=== PATIENT | female | born 2000 ===

== ENCOUNTER 2022-02-09 12:09 | Outpatient (CLI) | payer OTHER, SELFPAY | END 2022-02-09 12:10 | disposition home or self-care (01) | LOC: ANHLAB 12:11 | PROVIDERS: PCP Family Medicine; Visit Provider Obstetrics & Gynecology | DX: Z36.89 Encounter for other specified antenatal screening (principal); Z3A.00 Weeks of gestation of pregnancy not specified | CPT/HCPCS: 36415; 85461 ==

== ENCOUNTER 2023-10-01 11:03 | Emergency (ER) | payer OTHER, SELFPAY ==
--- NOTE | 2023-10-01 11:04 | ED.GENADULT ---
HPI - General Adult General Chief complaint: Skin/Abscess/Foreign Body Stated complaint: Allergic Reaction, Itchy Throat Time Seen by Provider: 10/01/23 11:04 Source: patient Mode of arrival: ambulatory Limitations: no limitations History of Present Illness HPI narrative: 23-year-old female patient, who expressed no of allergic reaction. patient states she had her wisdom T taken out a couple of days ago and last night was experiencing more pain and so took the stronger medication of Tylenol with codeine. Patient states she woke up this morning with IA a blotchy rash to the face and neck that is itchy. Patient states her throat feels a little dry and irritated but denies any shortness of breath or coughing. Denies any feelings like her throat is closing up. Denies any fevers body aches or chills. Patient states she did take some Benadryl prior to arrival today Related Data Home Medications Medication Instructions Recorded Confirmed chlorhexidine gluconate 0.12 % 1 applic PO BID 10/01/23 10/01/23 mouthwash (Periogard) Allergies Allergy/AdvReac Type Severity Reaction Status Date / Time No Known Allergies Allergy Verified 10/01/23 11:08 Review of Systems Review of Systems: CONSTITUTIONAL: Denies fever, chills, or sweats. EYES: Denies visual changes, redness, or discharge. ENT: Denies rhinorrhea, congestion, sore throat, or otalgia. CARDIOVASCULAR: Denies chest pain, palpitations, or edema. RESPIRATORY: Denies cough or dyspnea. GASTROINTESTINAL: Denies abdominal pain, nausea, vomiting, or diarrhea. GENITOURINARY: Denies dysuria or hematuria. SKIN: positive rash with itching. MUSCULOSKELETAL: Denies back pain, joint pain, or myalgia. NEUROLOGIC: Denies headache, numbness, or weakness. PSYCHIATRIC: Denies anxiety or depression. [facility] Past Medical History Medical History (Updated 10/01/23 @ 11:24 by CATALINO Tong) Bacterial conjunctivitis Family History Family History Grandparent Family history of hypercholesterolemia Hypertension Cerebrovascular accident Mother Family history of hypercholesterolemia Social History Social History Smoking status: Never smoker Alcohol intake: never Comments At the time of my signature I agree with nursing past medical history, surgical, social, and family history. There is no relevant family history pertinent to the presenting complaint. Exam Narrative: GENERAL: Well-appearing, well-nourished, and in no acute distress. HEAD: Normocephalic, atraumatic. EYES: PERRLA and EOMI. ENT: Nares clear, no rhinorrhea or epistaxis. Mucous membranes moist. Posterior pharynx with no erythema, tonsillar enlargement, exudates or lesions present. NECK: Supple. No lymphadenopathy. No stridor noted on auscultation CHEST: Clear to auscultation. No respiratory distress. patient able talk in clear complete sentences. HEART: Regular rate and rhythm. No murmur heard. Normal peripheral pulses. ABDOMEN: Soft, nontender, nondistended, normal active bowel sounds. EXTREMITIES: Normal range of motion. No edema. SKIN: Warm, dry, patient has blotchy rash noted to the left cheek and down to the bilateral neck area appears to be some wheals that are irregular in shape and flat with erythema. No open wounds or discharge present. NEURO: No focal deficits. Alert and oriented x3. Course Course Level of Care: Express Care Visit Vital Signs Vital signs: Vital Signs Temperature 36.8 C 10/01/23 11:14 Pulse Rate 72 10/01/23 11:14 Respiratory Rate 16 10/01/23 11:14 Blood Pressure 126/71 10/01/23 11:14 Pulse Oximetry 100 10/01/23 11:14 Oxygen Delivery Room Air 10/01/23 11:14 Temperature 36.8 C 10/01/23 11:14 Pulse Rate 72 10/01/23 11:14 Respiratory Rate 16 10/01/23 11:14 Blood Pressure 126/71 10/01/23 11:14 Pulse Oximetry 100
[2023-10-01 11:14] VITALS: BP 126/71; PULSE 72; RESP 16; TEMP 36.8; O2SAT 100
== END 2023-10-01 11:25 | disposition home or self-care (01) ==
PROVIDERS: Emergency Provider Nurse Practitioner Family; PCP Family Medicine
DX: L50.0 Allergic urticaria (principal)
CPT/HCPCS: 99213; G0463